=== PATIENT | female | born 1945 | race Caucasian/White ===

== ENCOUNTER → 2017-06-19 | Outpatient (CLI) | payer MEDICARE ==
--- NOTE | 2017-06-19 16:25 | CONS ---
CONSULTATION DATE OF SERVICE: 06/19/2017 The 72-year-old lady has been re-evaluated in the sleep center for obstructive sleep apnea-hypopnea syndrome. HISTORY OF PRESENT ILLNESS/SLEEP-WAKE EVALUATION: Patient has had a history of obstructive sleep apnea for many years. Last CPAP titration was done in 2009. Since that time, patient lost weight; from 181 pounds down to 165 pounds today. Her sleep schedule is usually from 11 p.m. to 7 a.m. She does not have any problems with falling asleep. She is using her CPAP equipment every night for the whole night, but she still wakes up from sleep 3 times, and up to 2 times may need to go to the restroom. She has some problems with her legs also: while falling asleep restless legs, and during the night she also has leg movements. She is on treatment with ropinirole but still has problems. During the day the patient feels sleepy. [place] Sleepiness Scale is 9. She is taking naps during the day at 2 p.m. I checked patient's CPAP unit. CPAP pressure is 11 cm of water. Usage is every night, average 7 hours and 42 minutes of time. PAST MEDICAL HISTORY: 1. Hypothyroidism. 2. Hyperlipidemia. 3. Depression. 4. Panic attacks. PAST SURGICAL HISTORY: 1. Recently 2 back surgeries. 2. Bilateral knee replacement. 3. Bladder suspension. 4. Hysterectomy. 5. surgery in the past. MEDICATIONS: 1. Levothyroxine. 2. Atorvastatin. 3. Fluoxetine. 4. Clonazepam. 5. Ropinirole. FAMILY HISTORY: Hypertension, hyperlipidemia, stroke, arthritis, sleep apnea, diabetes, thyroid problem, restless legs. SOCIAL HISTORY: Negative for smoking or using alcohol. REVIEW OF SYSTEMS: Awakenings from sleep, sleepiness during the day. PHYSICAL EXAMINATION: GENERAL A pleasant lady without distress. VITAL SIGNS: BP 139/72, HR 74, RR 16, height 5 feet 1 inch, weight 165, BMI 31.1, temperature 97.6, oxygen saturation at room air 99% HEENT: PERRLA, EOMI. Evaluation of oropharynx showed tongue protrudes midline; low position of soft palate. NECK: Supple. No JVD. Thyroid is not palpable. LUNGS: Clear to percussion and to auscultation. Good air exchange. No wheezing or rhonchi. HEART: S1, S2 regular. No murmurs, gallops or rubs. ABDOMEN: Slightly obese. Soft and nontender. Bowel sounds are present. No organomegaly appreciated. EXTREMITIES : No clubbing or cyanosis. REAL ESTATE DEVELOPMENT MANAGER: Awake, alert, and oriented X3. Cranial nerves 2 to 7 intact. There is no fasciculation or atrophy. noted. No focal deficits observed. IMPRESSION: 1. Obstructive sleep apnea-hypopnea syndrome for many years. Patient continues to use his CPAP equipment every night for the whole night but wakes up from sleep and has sleepiness during the day. Low position of soft palate. CPAP unit does not have an apnea-hypopnea index reading. 2. Restless legs. 3. Periodic limb movements. 4. Hyperlipidemia. 5. Hypothyroidism. 6. Obesity. 7. History of depression. 8. History of panic attacks. 9. Status post two back surgeries. 10.Status post bilateral knee replacement. 11.Status post hysterectomy. 12.Status post bladder suspension. PLAN: 1. We will repeat CPAP titration for re-evaluation of effective CPAP pressure at the present time. 2. Patient will get a new CPAP unit. 3. Prescription for all necessary CPAP supplies, including mask, tube, filters. 4. Sleep hygiene with regular time in bed for at least 8 hours. 5. No driving if feeling any sleepiness. Thank you very much for allowing me to participate in the management of your patient. Sincerely, Carson Miguel MD, PhD, FAASM Diplomat of [employer] Hot Plate Plywood Press Operator of [facility] [place] MMODL / IJN: [id number] /
== END | disposition home or self-care (01) ==
LOC: SLEEP 13:52
PROVIDERS: ATTEND Internal Medicine
DX: G47.33 Obstructive sleep apnea (adult) (pediatric) (principal); G25.81 Restless legs syndrome; G47.61 Periodic limb movement disorder; M27.8 Other specified diseases of jaws; E03.9 Hypothyroidism, unspecified; E78.5 Hyperlipidemia, unspecified; E66.9 Obesity, unspecified; F32.9 Major depressive disorder, single episode, unspecified; F41.0 Panic disorder [episodic paroxysmal anxiety]; Z96.653 Presence of artificial knee joint, bilateral; Z90.710 Acquired absence of both cervix and uterus; Z98.890 Other specified postprocedural states; Z99.89 Dependence on other enabling machines and devices; Z79.899 Other long term (current) drug therapy

== ENCOUNTER → 2017-10-23 | Outpatient (CLI) | payer MEDICARE, OTHER ==
--- NOTE | 2017-10-23 11:25 | SFUN ---
SLEEP CENTER FOLLOW UP NOTE DATE OF SERVICE: 10/23/2017. A 72-year-old lady has been followed in sleep center for treatment of obstructive sleep apnea-hypopnea syndrome. Recently, we repeated CPAP titration and after that patient received new CPAP unit. CPAP titration went well and the patient respiration was under control. She received new CPAP unit. She does not have any problem with the CPAP unit. She feels well with that and it is easy for her to breathe. She likes her nasal pillow mask. No snoring with the machine. Sleep study although showed that patient had significant amount of periodic limb movements 138.8 per hour with 96.5 microarousals per hour and patient continued to feel some sleepiness during the day. [place] Sleepiness Scale increased to 13. MEDICATIONS: Present medications are levothyroxine, atorvastatin, fluoxetine, clonazepam, ropinirole 0.5 mg at bedtime. I checked patient's CPAP unit. CPAP pressure is 11 cm of water. Usage is 100% of the time more than 4 hours. Average usage is 7.5 hours. Leak is 10 L/minute which is normal range. Apnea-hypopnea index for the last month is 2.5, which is normal. PHYSICAL EXAMINATION: During physical examination, patient in no distress. VITAL SIGNS: BP 139/62, HR 72, RR 16, weight 172, temp 98.0, oxygen saturation room air 98%. HEENT: PERRLA, EOMI. Oropharynx moderately low position of soft palate, wide pillars. NECK: Supple, no JVD. Thyroid is not palpable. LUNGS: Clear to percussion and to auscultation. Good air exchange. No wheezing or rhonchi. HEART: S1, S2 regular. No murmurs, gallops, or rubs. ABDOMEN: Soft and nontender. Bowel sounds are present. No organomegaly appreciated. EXTREMITIES: No clubbing or cyanosis. SENIOR RESEARCH ASSOCIATE: Awake, alert, and oriented X3. Cranial nerves 2 to 7 intact. There is no fasciculation or atrophy. noted. No focal deficits observed. IMPRESSION: 1. Obstructive sleep apnea-hypopnea syndrome. The patient demonstrated 100% compliance with treatment benefitting from treatment normal respiration on treatment with CPAP. 2. Severe periodic limb movements during the sleep study while (patient did not take her ropinirole 0.5 mg at bedtime before sleep test). 3. Hypothyroidism. 4. History of depression. 5. Hyperlipidemia. 6. History of panic attacks. 7. Status post 2 back surgeries. 8. Status post bilateral knee replacement. 9. Status post hysterectomy. 10.Status post bladder suspension. PLAN: 1. According to patient her hemoglobin and iron is in normal range. Please recheck that because low level of iron increase risks for restless legs and periodic limb movements. 2. SSRIs including fluoxetine might increase risk for periodic limb movements, although patient needs this medication for treatment of depression. 3. Patient will add clonazepam, which she is taking now on p.r.n. basis during the day at night time to prevent arousals related to periodic limb movements. 4. If patient will continue problems related to PLMS consider to increase dose of ropinirole or change medication to pramipexole. 5. Sleep hygiene with regular time in bed for at least 8 hours. 6. No driving if feeling any sleepiness. Thank you very much for allowing me to participate in management of your patient. Sincerely, Carson Miguel MD, PhD, FAASM Diplomat of [employer] Caterpillar Operator of [facility] [place] MMODL / IJN: [id number] / CHAS
== END | disposition home or self-care (01) ==
LOC: SLEEP 09:53
PROVIDERS: ATTEND Internal Medicine
DX: G47.33 Obstructive sleep apnea (adult) (pediatric) (principal); E03.9 Hypothyroidism, unspecified; E78.5 Hyperlipidemia, unspecified; F41.0 Panic disorder [episodic paroxysmal anxiety]; F32.9 Major depressive disorder, single episode, unspecified; Z98.890 Other specified postprocedural states; Z96.653 Presence of artificial knee joint, bilateral; Z90.710 Acquired absence of both cervix and uterus; Z79.899 Other long term (current) drug therapy

== ENCOUNTER → 2018-02-12 | Outpatient (CLI) | payer MEDICARE, OTHER ==
--- NOTE | 2018-02-12 10:54 | PN ---
PROGRESS NOTE DATE OF SERVICE: 02/12/2018 A 72-year-old lady who has been followed in the Sleep Center for treatment of obstructive sleep apnea-hypopnea syndrome. Patient continued to use her CPAP equipment every night for the whole night without significant problem with the new machine she feels that machine is very quiet and she does not feel much pressure in her mask while she sleeps. No snoring. [place] Sleepiness Scale today is 10. I checked her CPAP unit. CPAP pressure is 11 cm of water. Usage is 100% of the time more than 4 hours. Average usage is 7.7 hours per night. Pressure is 11 cm of water. Leak is 7 L/minute which is absolutely normal range. Apnea-hypopnea index 2.4, which is normal. MEDICATIONS: Levothyroxine, atorvastatin, fluoxetine, clonazepam, PHYSICAL EXAM: Patient in no distress. BP 124/62, HR 73, RR 16, height 5, 1, weight 178, temp 97.7, body mass index is 30.6. Patient increased her weight 6 pounds since previous visit. Oxygen saturation at room air 98%. OROPHARYNX: Low position of soft palate, wide pillars. Neck Supple, no JVD. Thyroid is not palpable. LUNGS Clear to percussion and to auscultation. Good air exchange. No wheezing or rhonchi. HEART S1, S2 regular. No murmurs, gallops, or rubs. ABDOMEN Soft and nontender. Bowel sounds are present. No organomegaly appreciated. EXTREMITIES No clubbing or cyanosis. INSIDE SALES EXECUTIVE Awake, alert, and oriented X3. Cranial nerves 2 to 7 intact. There is no fasciculation or atrophy. noted. No focal deficits observed. IMPRESSION: 1. Obstructive sleep apnea-hypopnea syndrome. Patient demonstrated 100% compliance with treatment benefitting from treatment. 2. Periodic limb movements. 3. Hypothyroidism. 4. History of depression. 5. Hyperlipidemia. 6. History of panic attacks in the past. 7. Status post two back surgeries. 8. Status post bilateral knee replacement. 9. Status post hysterectomy. 10.Status post bladder suspension. PLAN: 1. Patient will continue to use his CPAP equipment every night for the whole night. 2. Will maintain all necessary prescription for CPAP supplies including mask, tube, filters. 3. Watching and losing weight. 4. Sleep hygiene with regular time back for at least 7.5 - 8 hours. 5. Precautions related to driving if feeling sleepiness. Thank you very much for allowing me to participate in management of your patients. Sincerely, Carson Miguel MD, PhD, FAASM Diplomat of [employer] Medicine Teacher Assistant of [facility] [place] MMODL / VICTORINAN: [id number] /
== END ==
LOC: SLEEP 09:59
PROVIDERS: ATTEND Internal Medicine
DX: G47.33 Obstructive sleep apnea (adult) (pediatric) (principal); G47.61 Periodic limb movement disorder; E03.9 Hypothyroidism, unspecified; E78.5 Hyperlipidemia, unspecified; F32.9 Major depressive disorder, single episode, unspecified; F41.0 Panic disorder [episodic paroxysmal anxiety]; Z98.890 Other specified postprocedural states; Z96.653 Presence of artificial knee joint, bilateral; Z90.710 Acquired absence of both cervix and uterus; Z96.0 Presence of urogenital implants; Z99.89 Dependence on other enabling machines and devices; Z79.899 Other long term (current) drug therapy

== ENCOUNTER → 2019-03-11 | Outpatient (CLI) | payer MEDICARE, OTHER ==
--- NOTE | 2019-03-11 12:59 | SFUN ---
SLEEP CENTER FOLLOW UP NOTE DATE OF SERVICE: 03/11/2019 A 74-year-old lady who has been followed in sleep center for treatment of obstructive sleep apnea-hypopnea syndrome and periodic limb movements. Patient continued to use her CPAP equipment every night but recently started to have more awakenings from sleep than before and sometimes feel more sleepy during the day. Today her [place] Sleepiness Scale increased to 15. Her sleep schedule from 10 p.m. to 7:30 am. I checked her CPAP unit. CPAP pressure was 11 cm of water. Usage is 30 out of 30 nights for more than 4 hours with average usage 7.4 hours per night, which is normal range. Pressure is 11 cm of water, like it was one year ago. Leak is 6 L/minute, which is absolutely normal. Apnea-hypopnea index only 1.9, which is totally normal range. MEDICATIONS: Levothyroxine, atorvastatin, fluoxetine, clonazepam, ropinirole. PHYSICAL EXAMINATION: During physical exam, patient in no distress. VITAL SIGNS: BP 145/80, HR 80, RR 16, height 5 feet 1-1/2 inches, weight 175.8 pounds, which is 2 pounds less than during her visit one year ago. Temperature 97.7. Body mass index 32.5. Oxygen saturation at room air 99% on room. HEENT: PERRLA, EOMI. Oropharynx low position of soft palate, Mallampati 3. NECK: Supple, no JVD. Thyroid is not palpable. LUNGS: Clear to percussion and to auscultation. Good air exchange. No wheezing or rhonchi. HEART: S1, S2 regular. No murmurs, gallops, or rubs. ABDOMEN: Soft and nontender. Bowel sounds are present. No organomegaly appreciated. EXTREMITIES: No clubbing or cyanosis. FLAVORING MAKER: Awake, alert, and oriented X3. Cranial nerves 2 to 7 intact. There is no fasciculation or atrophy. noted. No focal deficits observed. IMPRESSION: 1. Obstructive sleep apnea-hypopnea syndrome. The patient demonstrated 100% compliance with treatment. No significant abnormalities of respiration by reading from the machine. No significant leak. Patient benefitting from CPAP treatment. 2. Periodic limb movements. Presently patient is on treatment with ropinirole 0.5 mg at bedtime sometimes has leg movements at night. 3. Patient feels more sleepy during the day now than before. [place] Sleepiness Scale increased to 15. 4. Hypothyroidism. 5. History of depression. 6. Hyperlipidemia. 7. History of panic attacks in the past. 8. Status post 2 back surgeries. 9. Status post bilateral knee replacement. 10.Status post hysterectomy. 11.Status post bladder suspension. PLAN: 1. Patient will continue to use CPAP equipment every night for the whole night with the same regimen. I believe that treatment of obstructive sleep apnea is under control. 2. She will continue to take ropinirole with the same dose 0.5 mg at bedtime. I prefer not to increase dose of ropinirole. 3. The patient will take clonazepam 0.5 mg at bedtime. 4. Please check level of thyroid hormone. At the present time patient was on levothyroxine replacement. 5. SSRIs like fluoxetine may increase risk for periodic limb movements. 6. Please check iron profile including ferritin level, low level of iron may increase risk for periodic limb movements. 7. Sleep hygiene with regular time in bed for 7-1/2 to 8 hours. 8. No driving if feeling sleepiness. 9. Follow-up visit in 3 to 4 months. 10.I will maintain all necessary prescriptions for C-PAP supply including mask, tube, filters. Thank you very much for allowing me to participate in management of your patient. Sincerely, Carson Miguel MD, PhD, FAASM Diplomat of [employer] Board of Internal Medicine Bridge/Structure Inspection Team Leader of [facility] [place] MMJOHANNE / VICTORINAN: [id number] /
== END | disposition home or self-care (01) ==
LOC: SLEEP 11:33
PROVIDERS: ATTEND Internal Medicine
DX: G47.33 Obstructive sleep apnea (adult) (pediatric) (principal); E03.9 Hypothyroidism, unspecified; E78.5 Hyperlipidemia, unspecified; Z86.59 Personal history of other mental and behavioral disorders; Z96.653 Presence of artificial knee joint, bilateral; Z90.710 Acquired absence of both cervix and uterus; Z98.890 Other specified postprocedural states; Z79.899 Other long term (current) drug therapy

== ENCOUNTER → 2019-05-10 | Outpatient (CLI) | payer MEDICARE, OTHER ==
--- NOTE | 2019-05-11 00:35 | MR ---
EXAMINATION TYPE: MR foot RT wo con DATE OF EXAM: 05/10/2019 COMPARISON: None HISTORY: Right foot pain for 5 years. TECHNIQUE: Multiplanar multiecho imaging of the right foot was performed with no contrast. FINDINGS: There is diffuse subcutaneous edema around the lower leg. There is mild subcutaneous edema of the for efoot. The ankle mortise is anatomic. There is mild increased signal on the T2 images in the third me tatarsal head. This has corresponding decreased signal on the T1 images and consistent with bone edgar a. There is altered signal in the second digit at the middle phalanx that is probably artifactual. I see no definite toe fracture. There is narrowing and spurring at the first MP joint. There are small degenerative cysts in the first metatarsal head. There is mild ankle joint effusion with increased fl uid around the talonavicular joint. There is some focal edema or bone bruise involving the anterior n avicular that measures 7 mm. The Achilles tendon is intact. The medial and lateral flexor tendons appear intact. Plantar fascia ap pears intact. IMPRESSION: Mild ankle joint effusion consistent with mild nonspecific synovitis. Degenerative cyst formation in the anterior navicular. Subcutaneous edema around the lower leg and forefoot. Third metatarsal head edema could relate to fracture or significant arthritic disease or less likely osteomyelitis. Correlation with a plain film exam would be helpful. Bone destruction is possible. First MP joint osteoarthritis.
== END | disposition home or self-care (01) ==
LOC: RADMRIMAIN 18:26
PROVIDERS: ATTEND Orthopaedic Surgery
DX: M19.071 Primary osteoarthritis, right ankle and foot (principal); M20.11 Hallux valgus (acquired), right foot

== ENCOUNTER → 2020-05-03 | Outpatient (CLI) | payer MEDICARE, OTHER ==
--- NOTE | 2020-05-03 12:26 | SFUN ---
SLEEP CENTER FOLLOW UP NOTE DATE OF SERVICE: 05/03/2020 A 75-year-old lady had been followed in Sleep Center for treatment of obstructive sleep apnea-hypopnea syndrome and periodic limb movements. The patient continues to use her CPAP equipment every night for the whole night, usually no snoring with the machine. [place] Sleepiness Scale is 11. Sometimes she has leg movements during the sleep. She has taken ropinirole 0.5 mg at bedtime to prevent leg movements. I checked her CPAP unit. CPAP pressure 11 cm of water. Usage is 30 out of 30 nights for more than 4 hours, average 7.7 hours per night. Leak is 16 L/minute. Apnea-hypopnea index only 2.4, which is normal. MEDICATIONS: Levothyroxine, atorvastatin, fluoxetine, clonazepam, ropinirole. PHYSICAL EXAMINATION: GENERAL: Patient in no distress. VITAL SIGNS: BP 136/76, HR 74, RR 12, height 5 feet and 2 inches, weight 172.6, temperature 97.5, oxygen saturation at room air 99%. HEENT: PERRLA, EOMI. Oropharynx low position of soft palate, Mallampati 3. NECK: Supple, no JVD. Thyroid is not palpable. LUNGS: Clear to percussion and to auscultation. Good air exchange. No wheezing or rhonchi. HEART: S1, S2 regular. No murmurs, gallops, or rubs. ABDOMEN: Soft and nontender. Bowel sounds are present. No organomegaly appreciated. EXTREMITIES: No clubbing or cyanosis. RED HAT LINUX ENGINEER: Awake, alert, and oriented X3. Cranial nerves 2 to 7 intact. There is no fasciculation or atrophy. noted. No focal deficits observed. IMPRESSION: 1. Obstructive sleep apnea-hypopnea syndrome. Patient demonstrated 100% compliance with treatment, benefitting from treatment, normal respirations on CPAP. 2. Periodic limb movements. The patient is on treatment with ropinirole 0.5 mg at bedtime. 3. Hypothyroidism. 4. History of depression. 5. Anxiety. 6. Hyperlipidemia. 7. History of panic attacks in the past. 8. Status post 2 back surgeries. 9. Status post bilateral knee replacement. 10.Status post hysterectomy. 11.Status post bladder suspension. PLAN: 1. I discussed with the patient the necessity to check iron profile and ferritin level in case if ferritin level will be below 50 mcg/mL she should have additional iron supplement because low level of iron may increase risk for periodic limb movements and restless legs. 2. Patient will continue to use PAP equipment every night for the whole night. 3. Sleep hygiene with regular time in bed for at least 7-1/2 to 8 hours. 4. Precautions related to driving. No driving if feeling sleepiness. 5. I will maintain all necessary prescription for PAP supplies including mask, tube, filters. Watching weight. 6. No driving if feeling sleepiness. 7. Follow-up visit in 6 months or earlier if patient has any problems. 8. I wrote prescription for all necessary CPAP supplies today. Thank you very much for allowing me to participate in management of your patient. Sincerely, Carson Miguel MD, PhD, FAASM Diplomat of [employer] of Internal Medicine Ophthalmic Lens Inspector of [facility] [place] MMODL / VICTORINAN: [id number] /
== END ==
LOC: SLEEP 10:35
PROVIDERS: ATTEND Internal Medicine
DX: G47.33 Obstructive sleep apnea (adult) (pediatric) (principal); G47.61 Periodic limb movement disorder; E03.9 Hypothyroidism, unspecified; E78.5 Hyperlipidemia, unspecified; F41.9 Anxiety disorder, unspecified; Z90.710 Acquired absence of both cervix and uterus; Z86.59 Personal history of other mental and behavioral disorders; Z96.653 Presence of artificial knee joint, bilateral; Z98.890 Other specified postprocedural states

== ENCOUNTER 2020-11-03 11:00 | Day surgery (SDC) | payer MEDICARE, OTHER ==
[2020-10-24 10:12] VITALS: BMI 31.7
[~2020-11-03 11:00] MED LIST: DEXAMETHASONE SOD PHOSPHATE 4 MG/ML 1 ML VIAL IV ONE; HYDROmorphone 0.5 MG/0.5 ML SYRINGE IVP PRN; LACTATED RINGERS 1,000 ML IV SCH; MIDAZOLAM 2 MG/2 ML VIAL IV PRN; ONDANSETRON 4 MG/2 ML VIAL IVP ONE
[2020-11-03] MEDS ORDERED: MIDAZOLAM 2 MG/2 ML VIAL IVP ONE (12:16)
--- NOTE | 2020-11-03 12:40 | P.ANPRN ---
Procedure Note - Anesthesia - Nerve Block Performed Right Popliteal Single Time Out Performed: Yes Date of Procedure: 11/03/20 Procedure Start Time: 12:15 Procedure Stop Time: 12:26 Location of Patient: PreOp Indication: Acute Post-Operative Pain, Requested by Surgeon Sedation Type: Sedate with meaningful contact maintained Preparation: Sterile Prep, Sterile Dressing Position: Left Lateral Catheter: None Needle Types: Pajunk Needle Gauge: 20 Ultrasound used to visualize needle placement: Yes Ultrasound used to observe medication spread: Yes Injectate: 0.5% Ropivacaine (see comment for volume) (30 ml + decadron 4 mg) Blood Aspirated: No Pain Paresthesia on Injection Noted: No Resistance on Injection: Normal Image Stored and Saved: Yes Events: Uneventful and Well Tolerated
[2020-11-03] MEDS ORDERED: LIDOCAINE 1% INJ 10MG/ML (20 ML MDV) ONE (13:15)
[2020-11-03] MEDS ORDERED: fentaNYL (PF) 50 MCG/ML 2 ML AMP ONE (13:15)
[2020-11-03] MEDS ORDERED: MIDAZOLAM 2 MG/2 ML VIAL ONE (13:15)
[2020-11-03] MEDS ORDERED: PROPOFOL 10 MG/ML 20 ML VIAL IV ONE (13:15)
[2020-11-03] MEDS ORDERED: LACTATED RINGERS 1,000 ML IV ONE (14:06)
[2020-11-03 14:33] VITALS: TEMP 97.1
[2020-11-03 15:09] VITALS: RESP 16
[2020-11-03 15:41] VITALS: BP 129/74; PULSE 74
--- NOTE | 2020-11-03 18:07 | P.OP ---
Date of Procedure: 11/03/20 Preoperative Diagnosis: 1. Dislocated second and third metatarsal phalangeal joint right foot 2. Hammertoes second and third digits right foot Postoperative Diagnosis: 1. Same 2. Hammertoe third digit right foot Procedure(s) Performed: 1. Secondary metatarsal osteotomy right foot 2. Partial third metatarsal head resection right foot 3. Hammertoe correction third digit right foot Implants: (2) 2.0mm cortical screws [employer] Phalinx implant Anesthesia: GETA Surgeon: Braden Johnson Estimated Blood Loss (ml): 2 Pathology: none sent Condition: stable Disposition: PACU Description of Procedure: Prior to being brought to the operative room anesthesia administered a nerve block on the right lower extremity under ultrasonic guidance and utilized mild sedation. Then the patient was brought into the operative room and placed on the table supine position. Timeout was taken to confirm correct patient identifiers, correct procedure, and correct site of surgery. When the room was in agreement the patient was induced and placed under general anesthesia. A well-padded tourniquet was placed on the right ankle and then the right foot was prepped and draped in the usual manner. The foot was exsanguinated and the tourniquet inflated to 250 mmHg attention directed between the second and third metatarsals where an incision was made beginning from the webspace and extending approximately 3 cm. The incision was deepened down to the subcutaneous layer careful to identify, avoid, and retract any neurovascular structures and cauterize any bleeding vessels. Blunt dissection was continued down to level of the second and third metatarsal phalangeal joint capsules. Capsulotomies were performed lateral to the long extensor tendons. The capsule reflected from the osseous attachments on the second third metatarsal heads. A sagittal saw was used to resect the third metatarsal head which is then excised and removed. The cut was made with a plantar beveled to avoid any pressure points. All roughened edges were smoothed with a hand rasp. Then a ryan osteotomy was performed to the second metatarsal. The capital fragment was shifted proximally and medially to realign the joint. It was temporarily fixated with a K wire and checked under fluoroscopy for alignment. Fluoroscopy indicated that the alignment was much improved from preoperative findings. Therefore a drill hole was made for a 2.0 mm screw through the osteotomy distal to the K wire. The screw was inserted and tightened until a compressed the bone. The K wire was removed and that same hole was used to insert another 2.0 mm screw. Fluoroscopic imaging showed that the osteotomy had maintain position and the hardware is in proper alignment. Then attention was directed to the third digit over the proximal interphalangeal joint. A transverse incision was made over the joint and deepened down to the cutaneous layer careful to identify, avoid, and retract any neurovascular structures and cauterize any bleeding vessels. A transverse incision was made through the capsule and ligamentous structures on the dorsal aspect of the proximal phalangeal joint. The collateral ligaments were also transected to expose the proximal phalangeal head. A sagittal saw was used to resect the head of the proximal phalanx done perpendicular to the long axis of the toe. The head was removed from the surgical field. A guidewire for the hammertoe implant was used to create a packing machine pilot can router hole in the proximal phalanx. It was inserted into the middle phalanx and advanced out the distal aspect of the toe. The reamer was then utilized to remove the cartilage off the base of the middle phalanx. Both holes were drilled with the corresponding drill bit for the implant. The distal part of the implant was placed in the middle phalanx and threaded into proper position and depth. Then the stem on the proximal end was then inserted in the drill hole in the proximal phalanx and then the 2 bone ends were impacted together. Fluoroscopy indicated that there was good bony contact at the arthrodesis site the implant was properly aligned. The guidewire was advanced through the implant to open the legs of the implant to lock it in place Fluoroscopic imaging indicated that all deformities were corrected and that the hardware is in proper alignment. The wound is irrigated with sterile saline. The capsule was closed with 2-0 Vicryl. Subcutaneous closure was done with 4-0 Monocryl. And skin closure done with 4-0 nylon. A dry sterile dressings applied to the foot. The tourniquet was released and capillary refill return to all digits on the right foot. The patient tolerated above procedure and anesthesia well which recovery with vital signs stable
== END 2020-11-03 16:00 | disposition home or self-care (01) ==
LOC: OR 11:00
PROVIDERS: ATTEND Podiatrist
DX: M20.41 Other hammer toe(s) (acquired), right foot (principal); S93.124A Dislocation of metatarsophalangeal joint of right lesser toe(s), initial encounter; G25.81 Restless legs syndrome; E78.5 Hyperlipidemia, unspecified; E07.9 Disorder of thyroid, unspecified; Z98.1 Arthrodesis status; Z90.710 Acquired absence of both cervix and uterus; Z96.653 Presence of artificial knee joint, bilateral; X58.XXXA Exposure to other specified factors, initial encounter
CPT/HCPCS: 28285; 28308; C1713; J2250; J1100; J0690; J2405

== ENCOUNTER → 2020-11-23 | Outpatient (CLI) | payer MEDICARE, OTHER ==
--- NOTE | 2020-11-23 20:08 | SFUN ---
SLEEP CENTER FOLLOW UP NOTE DATE OF SERVICE: 11/23/2020 This 75-year-old lady has been followed in Sleep Center for treatment of obstructive sleep apnea-hypopnea syndrome. The patient continues to use her CPAP equipment every night and is getting her supplies on time. [place] Sleepiness Scale today is 9, which is less than during the previous visit and in acceptable range. I checked her CPAP unit. Pressure is 11 cm of water, usage 30/30 nights for more than 4 hours, average 7.6 hours per night. Leak is 12 L/minute, which is acceptable. Apnea- hypopnea index is 2.2, which is normal. I checked blood work related to iron profile, and this looks to be in normal range. It was done because the patient has periodic limb movements, and low level of iron increases the risk for periodic limb movements and restless legs. MEDICATIONS: The patient does not know the dosage. They include levothyroxine, atorvastatin, fluoxetine, clonazepam, ropinirole. PHYSICAL EXAMINATION: GENERAL: Pleasant patient in no distress. VITAL SIGNS: BP 136/77, HR 76, RR 14, height 5 feet 1 inch, weight 176.6, body mass index 33.2. The patient's weight increased by 4 pounds compared to the previous visit. Temperature 97.3, oxygen saturation at room air 98%. HEENT: PERRLA, EOMI, evaluation of oropharynx showed tongue protrudes midline. Low position of soft palate; Mallampati III. NECK: Supple, no JVD. Thyroid is not palpable. LUNGS: Clear to percussion and to auscultation. Good air exchange. No wheezing or rhonchi. HEART: S1, S2 regular. No murmurs, gallops, or rubs. ABDOMEN: Soft and nontender. Bowel sounds are present. No organomegaly appreciated. EXTREMITIES: No clubbing or cyanosis. ECMO SPECIALIST: Awake, alert, and oriented X3. Cranial nerves 2 to 7 intact. There is no fasciculation or atrophy. noted. No focal deficits observed. IMPRESSION: 1. Obstructive sleep apnea-hypopnea syndrome. Patient demonstrated great compliance with treatment, benefitting from treatment. 2. Periodic limb movements. The patient is on treatment with ropinirole. No complaints of periodic limb movements at the present time. 3. Hypothyroidism. 4. History of depression. 5. Hyperlipidemia. 6. Anxiety. 7. History of panic attacks in the past. 8. Status post two back surgeries. 9. Status post bilateral knee replacement. 10.Status post hysterectomy. 11.Status post bladder suspension. PLAN: 1. Patient will continue to use PAP equipment every night for the whole night. 2. Sleep hygiene with regular time in bed for at least 7-1/2 to 8 hours. 3. Precautions related to driving. No driving if feeling sleepiness. 4. I will maintain all necessary prescription for PAP supplies including mask, tube, filters. 5. Watching weight. 6. Follow-up visit in 6 months or earlier if patient has any problems. Thank you very much for allowing me to participate in the management of your patient. Sincerely, Carson Miguel MD, PhD, FAASM Diplomat of [place] Sleep Medicine Board of [place] [employer] Digital [employer] Operator of [facility] [place] MMSHELLL / VICTORINAN: [id number] /
== END | disposition home or self-care (01) ==
LOC: SLEEP 10:54
PROVIDERS: ATTEND Internal Medicine
DX: G47.33 Obstructive sleep apnea (adult) (pediatric) (principal); E03.9 Hypothyroidism, unspecified; E78.5 Hyperlipidemia, unspecified; F41.9 Anxiety disorder, unspecified; Z98.890 Other specified postprocedural states

== ENCOUNTER → 2021-08-08 | Outpatient (CLI) | payer MEDICARE, OTHER ==
--- NOTE | 2021-08-08 11:09 | P.PN ---
Subjective DATE: 08/08/2021 FOLLOW UP VISIT. Patient with obstructive sleep apnea hypopnea syndrome return to sleep center for follow-up visit. Patient is using PAP equipment every night for the whole night, getting PAP supplies in time. The patient does not have significant problems with the mask, PAP unit and humidification. [place] sleepiness scale is 13. I checked information from PAP unit. PAP unit pressure 11 cm H2O. Usage is 100 % for more then 4 hours, average 8.2 hours per night. Leak is 5 l/m, which is in acceptable range. Apnea Hypopnea Index is 2.1, which is normal. MEDICATIONS:1. Levothyroxine 25 g once a day 2. Atorvastatin 20 mg once a day 3. Fluoxetine 40 mg twice a day 4. Clonazepam 0.5 mg as needed 5. Ropinirole 0.5 mg once a day During physical exam: GENERAL: A pleasant patient without any distress. VITAL SIGNS: BP 122/73, HR 74, RR 16, weight 172.4, temperature and 37.3, oxygen saturation at room air 94%. HEENT: PERRLA, EOMI.low position of soft palate, Mallapati 3. NECK: Supple. No JVD. LUNGS: Clear to percussion and to auscultation. Good air exchange. No wheezing or rhonchi. HEART: S1, S2 regular. ABDOMEN: Soft and nontender.[] EXTREMITIES: No clubbing or cyanosis. MOVER HELPER: Awake, alert, and oriented x3. No focal deficit. Impressions: 1. Obstructive sleep apnea-hypopnea syndrome. Patient demonstrated great compliance with treatment, benefiting from treatment. 2. Periodic limb movements. Patient is on treatment with ropinirole. 3. The patient still has some symptoms of sleepiness [place] Sleepiness Scale increased to 13. 4. Hypothyroidism. 5. Anxiety. 6. Hyperlipidemia. 7. Status post 2 back surgeries. 8. Status post hysterectomy. 10 status post bilateral knee replacement . Plan: 1. Continue using PAP equipment every night for the whole night. 2. To change air filter at least 1-2 times per month. 3. PAP unit should stay lower then position of the head. 4. Advised patient to remove all remaining water from humidifier canister daily and make it dry after each usage. Refill canister with fresh distilled water before each usage. 5. Sleep hygiene with regular time in bed for at least 8.5 hours. 6. Precautions related to driving. No driving if feel any sleepiness. 7. I will maintain prescription for PAP supplies including mask, tube, filters. 8. Follow up visit in 6 months or earlier if patient has any problems. 9. Watching weight. Thank you very much for allowing me to participate in the management of your patient. Carson Miguel MD, PhD, FAASM. Diplomat of [place] [employer], Sleep Medicine Board by [place] [employer] Pension Consultant of [facility] [place]
== END ==
LOC: SLEEP 09:57
PROVIDERS: ATTEND Internal Medicine
DX: G47.33 Obstructive sleep apnea (adult) (pediatric) (principal); G47.61 Periodic limb movement disorder; E03.9 Hypothyroidism, unspecified; E78.5 Hyperlipidemia, unspecified; F41.9 Anxiety disorder, unspecified; Z90.710 Acquired absence of both cervix and uterus; Z96.653 Presence of artificial knee joint, bilateral; Z98.890 Other specified postprocedural states; Z79.890 Hormone replacement therapy; Z88.6 Allergy status to analgesic agent; Z88.2 Allergy status to sulfonamides

== ENCOUNTER → 2022-02-06 | Outpatient (CLI) | payer MEDICARE, OTHER ==
--- NOTE | 2022-02-06 11:47 | P.PN ---
Subjective DATE: 02/06/[address] Ananth Ervin MD FOLLOW UP VISIT. Patient with obstructive sleep apnea hypopnea syndrome return to sleep center for follow-up visit. Information from previous visit have been reviewed. Patient is using PAP equipment every night for the whole night, getting PAP supplies in time. The patient does not have significant problems with the mask, PAP unit and humidification. [place] sleepiness scale increased to 14. I checked information from PAP unit. PAP unit pressure 11 cm H2O. Usage is 100 % for more then 4 hours, average 8.2 hours per night. Leak is 2 l/m, which is in perfect range. Apnea Hypopnea Index is 1.2, which is also perfect. MEDICATIONS:1. Levothyroxine 25 g once a day 2. Atorvastatin 20 mg once a day 3. Fluoxetine 40 mg twice a day 4. Clonazepam as needed 5. Ropinirole mg once a day During physical exam: GENERAL: A pleasant patient without any distress. VITAL SIGNS: BP 155/81, HR 70, RR 16 , weight 169.2, temperature 96.3, oxygen saturation at room air 99 % . HEENT: PERRLA, EOMI.low position of soft palate, Mallapati 3 . NECK: Supple. No JVD. LUNGS: Clear to percussion and to auscultation. Good air exchange. No wheezing or rhonchi. HEART: S1, S2 regular. ABDOMEN: Soft and nontender.[] EXTREMITIES: No clubbing or cyanosis. PER DIEM CLERK: Awake, alert, and oriented x3. No focal deficit. Impressions: 1. Obstructive sleep apnea-hypopnea syndrome. Patient demonstrated great compliance with treatment, benefiting from treatment. 2. Periodic limb movements. Patient continued treatment with ropinirole. 3. Patient still has some symptoms of excessive daytime sleepiness. 4. Hypothyroidism. 5. Anxiety. 6. Hyperlipidemia. 7. Status post hysterectomy. 8. Status post bilateral knee replacement. 9. Status post 2 back surgeries. Plan: 1. Continue using PAP equipment every night for the whole night. 2. To change air filter at least 1-2 times per month. I checked air filter, its in good condition. 3. PAP unit should stay lower then position of the head. 4. Advised patient to remove all remaining water from humidifier canister daily and make it dry after each usage. Refill canister with fresh distilled water before each usage. 5. Sleep hygiene with regular time in bed for at least 8 hours. 6. Precautions related to driving. No driving if feel any sleepiness. 7. I will maintain prescription for PAP supplies including mask, tube, filters. 8. Follow up visit in 6 months or earlier if patient has any problems. 9. Watching weight. Thank you very much for allowing me to participate in the management of your patient. Carson Miguel MD, PhD, FAASM. Diplomat of [employer] [employer], Sleep Medicine Board by [employer] Machine Operator of [facility] [place]
== END ==
LOC: SLEEP 10:59
PROVIDERS: ATTEND Internal Medicine
DX: G47.33 Obstructive sleep apnea (adult) (pediatric) (principal); G47.61 Periodic limb movement disorder; E03.9 Hypothyroidism, unspecified; F41.9 Anxiety disorder, unspecified; E78.5 Hyperlipidemia, unspecified; Z90.710 Acquired absence of both cervix and uterus; Z96.653 Presence of artificial knee joint, bilateral; Z98.890 Other specified postprocedural states; Z79.890 Hormone replacement therapy
CPT/HCPCS: 99212

== ENCOUNTER → 2022-08-14 | Outpatient (CLI) | payer MEDICARE, OTHER ==
--- NOTE | 2022-08-14 11:25 | P.PN ---
Subjective DATE: 08/14/2022 FOLLOW UP VISIT. Patient with obstructive sleep apnea hypopnea syndrome return to sleep center for follow-up visit. Information from previous visit have been reviewed. Patient is using PAP equipment every night for the whole night, getting PAP supplies in time. The patient does not have significant problems with the mask, PAP unit and humidification. [place] sleepiness scale is 9, which is borderline. I checked information from PAP unit. PAP unit pressure 11 cm H2O. Usage is 100 % for more then 4 hours, average 8.1 hours per night. Leak is 5 l/m, which is in acceptable range. Apnea Hypopnea Index is 1.2, which is normal. MEDICATIONS:1. Levothyroxine 25 g once a day 2. Fluoxetine 40 mg twice a day 3. Atorvastatin 20 mg once a day 4. Ropinirole at bedtime 5. Clonazepam as needed During physical exam: GENERAL: A pleasant patient without any distress. VITAL SIGNS: BP 131/73, HR 72, RR 12 , weight 164.0, temperature 97.8, oxygen saturation at room air 99 % . HEENT: PERRLA, EOMI.low position of soft palate, Mallapati[] . NECK: Supple. No JVD. LUNGS: Clear to percussion and to auscultation. Good air exchange. No wheezing or rhonchi. HEART: S1, S2 regular. ABDOMEN: Soft and nontender.[] EXTREMITIES: No clubbing or cyanosis. TURNTABLE OPERATOR: Awake, alert, and oriented x3. No focal deficit. Impressions: 1. Obstructive sleep apnea-hypopnea syndrome. Patient demonstrated great compliance with treatment, benefiting from treatment. 2. Hypothyroidism. 3. Periodic limb movements. 4. History of anxiety. 5. Hyperlipidemia. 6. Status post bilateral knee replacement. 7. Status post hysterectomy. 8. Status post back surgeries. 9. very minimal overweight, patient lost 5 pounds since previous visit. Plan: 1. Continue using PAP equipment every night for the whole night. 2. To change air filter at least 1-2 times per month. 3. PAP unit should stay lower then position of the head. 4. Advised patient to remove all remaining water from humidifier canister daily and make it dry after each usage. Refill canister with fresh distilled water before each usage. 5. Sleep hygiene with regular time in bed for at least 8 hours. 6. Precautions related to driving. No driving if feel any sleepiness. 7. I will maintain prescription for PAP supplies including mask, tube, filters. 8. Follow up visit in 6 months or earlier if patient has any problems. 9. Watching weight. Thank you very much for allowing me to participate in the management of your patient. Carson Miguel MD, PhD, FAASM. Diplomat of [place] [employer], Sleep Medicine Board by [employer] Assembler [employer] of [facility] [place]
== END ==
LOC: 3 N SLEEP 10:09
PROVIDERS: ATTEND Internal Medicine
DX: G47.33 Obstructive sleep apnea (adult) (pediatric) (principal); E03.9 Hypothyroidism, unspecified; E66.3 Overweight; E78.5 Hyperlipidemia, unspecified; F41.9 Anxiety disorder, unspecified; Z79.899 Other long term (current) drug therapy; Z90.710 Acquired absence of both cervix and uterus; Z96.653 Presence of artificial knee joint, bilateral; Z98.890 Other specified postprocedural states; G47.61 Periodic limb movement disorder; Z99.89 Dependence on other enabling machines and devices; Z79.890 Hormone replacement therapy; Z88.6 Allergy status to analgesic agent; Z88.2 Allergy status to sulfonamides; Z88.8 Allergy status to other drugs, medicaments and biological substances
CPT/HCPCS: 99212